=== PATIENT | female | born 1985 | race Caucasian/White ===

== ENCOUNTER 2017-05-04 08:34 | Day surgery (SDC) | payer OTHER ==
[~2017-05-04] VITALS: Ht 165.1 cm; Wt 88.5 kg
[~2017-05-04 08:34] MED LIST: ALBU.083IS IH; ALBU90OI INH; ALPR1; AMOX500 PO; AZIT200SU PO; AZIT250 PO; BENZ100A PO; BUSP10; CEPH500 PO; CIPR500 PO; CLON.5 PO; CYAN500 PO; Cyclobenzaprine5 MG PO; DESV50 PO; DIAZ5 PO; DOXY100 PO; ERGO400 PO; FLUC150A PO; FLUV50 PO; HYDACE5 PO; HYDHOMSY PO; Hair, Skin & N1 EACH PO; IBUP800; IBUP800 PO; LATUDA; LEVSOD50 PO; LITH300C; METR500 PO; MONT10T PO; MULVITMINE; NAPR250; NAPR500 PO; OXYACE5T PO; PARO20; PARO20 PO; PENVK500 PO; PRED20 PO; PROC10 PO; Percocet 5-3251 EACH PO; QUET300; SERT50; SULTRIDS PO; TAMS.4ER PO; TOPI100 PO; VENL37.5 PO; Vitamin C100 M1 PO; ZYRTEC10 M1 PO
== END 2017-05-04 22:52 | disposition home or self-care (01) ==
LOC: ORSCMMR 08:34
PROVIDERS: Internal Medicine Gastroenterology
PROC: 0DB98ZX Excision of Duodenum, Via Natural or Artificial Opening Endoscopic, Diagnostic (ICD-10-PCS; principal; 2017-05-04 10:00)
PROC: 0DBN8ZX Excision of Sigmoid Colon, Via Natural or Artificial Opening Endoscopic, Diagnostic (ICD-10-PCS; principal; 2017-05-04 10:00)
PROC: 0DB68ZX Excision of Stomach, Via Natural or Artificial Opening Endoscopic, Diagnostic (ICD-10-PCS; principal; 2017-05-04 10:00)
PROC: 0DBB8ZX Excision of Ileum, Via Natural or Artificial Opening Endoscopic, Diagnostic (ICD-10-PCS; principal; 2017-05-04 10:00)
PROC: 0DBK8ZX Excision of Ascending Colon, Via Natural or Artificial Opening Endoscopic, Diagnostic (ICD-10-PCS; principal; 2017-05-04 10:00)
PROC: 0DBL8ZX Excision of Transverse Colon, Via Natural or Artificial Opening Endoscopic, Diagnostic (ICD-10-PCS; principal; 2017-05-04 10:00)
DX: K90.0 Celiac disease (principal); K57.30 Diverticulosis of large intestine without perforation or abscess without bleeding; R19.4 Change in bowel habit; R14.0 Abdominal distension (gaseous); R10.84 Generalized abdominal pain; F43.10 Post-traumatic stress disorder, unspecified; Z87.891 Personal history of nicotine dependence
CPT/HCPCS: 88305; 88342; J2250; J7120

== ENCOUNTER → 2018-06-26 | Outpatient (CLI) | payer OTHER ==
[2018-06-26 08:17] LABS: BASOPHILS ABSOLUTE AUTO 0.04 K/mm3 (0.00-0.23); BASOPHILS PERCENT AUTO 1 % (0-2); EOSINOPHILS ABSOLUTE AUTO 0.22 K/mm3 (0.00-0.68); EOSINOPHILS PERCENT AUTO 3 % (0-6); Hematocrit 40.7 % (33.0-51.0); Hemoglobin 13.7 g/dL (11.5-16.0); IMMATURE GRAN ABSOLUTE AUTO 0.02 K/mm3 (0.00-0.10); IMMATURE GRAN PERCENT AUTO 0 % (0-1); LYMPHOCYTES ABSOLUTE AUTO 1.89 K/mm3 (0.84-5.20); LYMPHOCYTES PERCENT AUTO 29 % (21-46); MONOCYTES ABSOLUTE AUTO 0.48 K/mm3 (0.16-1.47); MONOCYTES PERCENT AUTO 7 % (4-13); Mean Corpuscular HGB 29.7 pg (26.0-34.0); Mean Corpuscular HGB Conc 33.7 g/dL (31.5-36.5); Mean Corpuscular Volume 88 fL (80-100); Mean Platelet Volume 10.4 fL (9.1-12.4); NEUTROPHILS ABSOLUTE AUTO 3.81 K/mm3 (1.96-9.15); NEUTROPHILS PERCENT AUTO 59 % (41-73); Platelet Count 286 K/mm3 (150-400); RDW Coefficient Variation 12.8 % (11.7-14.2); RDW Standard Deviation 41.3 fL (35.1-46.3); Red Blood Cell Count 4.61 M/mm3 (3.80-5.20); White Blood Cell Count 6.46 K/mm3 (4.00-11.30)
[2018-06-26 08:35] LABS: Alanine Aminotransfer (ALT/SGP 28 U/L (12-78); Albumin, Blood 3.6 g/dL (3.4-5.0); Albumin/Globulin Ratio 1.1 (0.8-1.8); Alk Phos 62 U/L (40-126); Anion Gap 8 mmol/L (6-16); Aspartate Aminotrans (AST/SGOT 15 U/L (12-37); Bilirubin, Total 0.2 mg/dL (0.1-1.0); Blood Urea Nitrogen 11 mg/dL (8-24); Bun/Creatinine Ratio 18.6 (12.0-20.0); CO2, Blood 27 mmol/L (21-32); Calcium, Blood 8.4 mg/dL (8.5-10.1); Chloride, Blood 105 mmol/L (98-108); Creatinine, Blood 0.59 mg/dL (0.40-1.00); Globulin, Blood 3.3 g/dL (2.2-4.0); Glomerular Filtration Rate >60 (60-); Glucose, Blood 99 mg/dL (70-99); Magnesium, Blood 1.7 mg/dL (1.6-2.4); Potassium, Blood 4.2 mmol/L (3.5-5.5); Sodium, Blood 140 mmol/L (136-145); Thyroid Stimulating Hormone 1.435 uIU/mL (0.360-4.800); Total Protein, Blood 6.9 g/dL (6.4-8.2)
== END | disposition home or self-care (01) ==
LOC: LAB SHORT 08:12 → LAB EV 08:12
PROVIDERS: Physician Assistant
DX: R60.9 Edema, unspecified (principal); R53.83 Other fatigue
CPT/HCPCS: 80053; 83735; 84443; 85025

== ENCOUNTER 2018-07-29 10:32 | Emergency (ER) | payer OTHER ==
[~2018-07-29] VITALS: Ht 165.1 cm; Wt 94.8 kg
[2018-07-29] MEDS ORDERED: METPHE10 PO (10:45)
[2018-07-29] MEDS ORDERED: POTCHL10ER PO (10:46)
[2018-07-29] MEDS ORDERED: FURO20 PO (10:46)
[2018-07-29 11:14] LABS: BASOPHILS ABSOLUTE AUTO 0.04 K/mm3 (0.00-0.23); BASOPHILS PERCENT AUTO 1 % (0-2); EOSINOPHILS ABSOLUTE AUTO 0.19 K/mm3 (0.00-0.68); EOSINOPHILS PERCENT AUTO 2 % (0-6); Hematocrit 42.7 % (33.0-51.0); Hemoglobin 14.2 g/dL (11.5-16.0); IMMATURE GRAN ABSOLUTE AUTO 0.03 K/mm3 (0.00-0.10); IMMATURE GRAN PERCENT AUTO 0 % (0-1); LYMPHOCYTES ABSOLUTE AUTO 2.24 K/mm3 (0.84-5.20); LYMPHOCYTES PERCENT AUTO 26 % (21-46); MONOCYTES ABSOLUTE AUTO 0.69 K/mm3 (0.16-1.47); MONOCYTES PERCENT AUTO 8 % (4-13); Mean Corpuscular HGB 29.3 pg (26.0-34.0); Mean Corpuscular HGB Conc 33.3 g/dL (31.5-36.5); Mean Corpuscular Volume 88 fL (80-100); Mean Platelet Volume 10.5 fL (9.1-12.4); NEUTROPHILS ABSOLUTE AUTO 5.61 K/mm3 (1.96-9.15); NEUTROPHILS PERCENT AUTO 64 % (41-73); Platelet Count 275 K/mm3 (150-400); RDW Coefficient Variation 12.5 % (11.7-14.2); RDW Standard Deviation 40.2 fL (35.1-46.3); Red Blood Cell Count 4.84 M/mm3 (3.80-5.20)
[2018-07-29 11:16] LABS: Source, Urine Clean Catch
[2018-07-29 11:19] LABS: Appearance, Urine Clear (Clear); Bilirubin, Urine Neg (Neg); Blood, Urine Neg (Neg); Color, Urine Yellow (P-Yellow); Glucose Qualitative, Urine Neg (Neg); Ketones, Urine Neg (Neg); Leukocyte Esterase, Urine Neg (Neg); Nitrite, Urine Neg (Neg); Protein, Urine Neg (Neg); Urobilinogen, Urine NORM (Normal)
[2018-07-29 11:26] LABS: Alanine Aminotransfer (ALT/SGP 38 U/L (12-78); Albumin/Globulin Ratio 1.2 (0.8-1.8); Alk Phos 69 U/L (50-136); Anion Gap 5 mmol/L (6-16); Aspartate Aminotrans (AST/SGOT 18 U/L (12-37); Bilirubin, Total 0.3 mg/dL (0.1-1.0); Blood Urea Nitrogen 11 mg/dL (8-24); Bun/Creatinine Ratio 20.6 (12.0-20.0); CO2, Blood 30 mmol/L (21-32); Calcium, Blood 9.1 mg/dL (8.5-10.1); Chloride, Blood 106 mmol/L (98-108); Creatinine, Blood 0.53 mg/dL (0.40-1.00); Globulin, Blood 3.4 g/dL (2.2-4.0); Glomerular Filtration Rate >60 (60-); Glucose, Blood 80 mg/dL (70-99); Sodium, Blood 141 mmol/L (136-145); Total Protein, Blood 7.4 g/dL (6.4-8.2)
== END 2018-07-29 12:57 | disposition home or self-care (01) ==
LOC: ER 10:32
PROVIDERS: Emergency Medicine
DX: R10.32 Left lower quadrant pain (principal); F17.210 Nicotine dependence, cigarettes, uncomplicated; Z88.5 Allergy status to narcotic agent; Z79.899 Other long term (current) drug therapy
CPT/HCPCS: 36415; 74176; 80053; 81003; 83690; 85025; 96374; 96375; 99284-25; J1170; J2405

== ENCOUNTER → 2021-09-01 | Outpatient (CLI) | payer BC ==
[~2021-09-01] MED LIST changes: +FURO20 PO; +METPHE10 PO; +POTCHL10ER PO
== END | disposition home or self-care (01) ==
LOC: LAB 15:56 → LAB SHORT 15:56
DX: R30.0 Dysuria (principal)
CPT/HCPCS: 87086

== ENCOUNTER → 2021-10-29 | Outpatient (CLI) | payer BC ==
[2021-10-29 13:45] LABS: BASOPHILS ABSOLUTE AUTO 0.03 K/mm3 (0.00-0.23); BASOPHILS PERCENT AUTO 0 % (0-2); EOSINOPHILS ABSOLUTE AUTO 0.13 K/mm3 (0.00-0.68); EOSINOPHILS PERCENT AUTO 2 % (0-6); Hematocrit 44.2 % (33.0-51.0); Hemoglobin 14.9 g/dL (11.5-16.0); IMMATURE GRAN ABSOLUTE AUTO 0.01 K/mm3 (0.00-0.10); IMMATURE GRAN PERCENT AUTO 0 % (0-1); LYMPHOCYTES ABSOLUTE AUTO 2.22 K/mm3 (0.84-5.20); LYMPHOCYTES PERCENT AUTO 32 % (21-46); MONOCYTES ABSOLUTE AUTO 0.44 K/mm3 (0.16-1.47); MONOCYTES PERCENT AUTO 6 % (4-13); Mean Corpuscular HGB 30.1 pg (26.0-34.0); Mean Corpuscular HGB Conc 33.7 g/dL (31.5-36.5); Mean Corpuscular Volume 89 fL (80-100); Mean Platelet Volume 10.6 fL (9.1-12.4); NEUTROPHILS ABSOLUTE AUTO 4.14 K/mm3 (1.96-9.15); NEUTROPHILS PERCENT AUTO 59 % (41-73); Platelet Count 288 K/mm3 (150-400); RDW Standard Deviation 42.3 fL (35.1-46.3); Red Blood Cell Count 4.95 M/mm3 (3.80-5.20); White Blood Cell Count 6.97 K/mm3 (4.00-11.30)
[2021-10-29 13:57] LABS: Albumin, Blood 4.2 g/dL (3.4-5.0); Albumin/Globulin Ratio 1.2 (0.8-1.8); Bilirubin, Total 0.2 mg/dL (0.1-1.0); Bun/Creatinine Ratio 12.7 (12.0-20.0); Creatinine, Blood 0.63 mg/dL (0.40-1.00); Globulin, Blood 3.4 g/dL (2.2-4.0); Potassium, Blood 3.9 mmol/L (3.5-5.5); Total Protein, Blood 7.6 g/dL (6.4-8.2)
== END | disposition home or self-care (01) ==
LOC: LAB SHORT 13:41
PROVIDERS: Physician Assistant
DX: R10.31 Right lower quadrant pain (principal)
CPT/HCPCS: 80053; 83690; 85025

== ENCOUNTER → 2022-04-09 | Outpatient (CLI) | payer BC ==
[2022-04-09 16:31] LABS: BASOPHILS ABSOLUTE AUTO 0.04 K/mm3 (0.00-0.23); BASOPHILS PERCENT AUTO 0 % (0-2); EOSINOPHILS PERCENT AUTO 2 % (0-6); Hematocrit 41.9 % (33.0-51.0); Hemoglobin 14.4 g/dL (11.5-16.0); IMMATURE GRAN ABSOLUTE AUTO 0.03 K/mm3 (0.00-0.10); IMMATURE GRAN PERCENT AUTO 0 % (0-1); LYMPHOCYTES ABSOLUTE AUTO 3.53 K/mm3 (0.84-5.20); LYMPHOCYTES PERCENT AUTO 34 % (21-46); MONOCYTES ABSOLUTE AUTO 0.73 K/mm3 (0.16-1.47); MONOCYTES PERCENT AUTO 7 % (4-13); Mean Corpuscular HGB 30.5 pg (26.0-34.0); Mean Corpuscular HGB Conc 34.4 g/dL (31.5-36.5); Mean Corpuscular Volume 89 fL (80-100); Mean Platelet Volume 10.3 fL (9.1-12.4); NEUTROPHILS ABSOLUTE AUTO 6.01 K/mm3 (1.96-9.15); NEUTROPHILS PERCENT AUTO 57 % (41-73); Platelet Count 291 K/mm3 (150-400); RDW Coefficient Variation 12.5 % (11.7-14.2); RDW Standard Deviation 40.8 fL (35.1-46.3); Red Blood Cell Count 4.72 M/mm3 (3.80-5.20); White Blood Cell Count 10.54 K/mm3 (4.00-11.30)
[2022-04-09 16:47] LABS: Albumin, Blood 4.1 g/dL (3.4-5.0); Albumin/Globulin Ratio 1.2 (0.8-1.8); Bilirubin, Total 0.2 mg/dL (0.1-1.0); Bun/Creatinine Ratio 19.6 (12.0-20.0); Calcium, Blood 8.9 mg/dL (8.5-10.1); Creatinine, Blood 0.56 mg/dL (0.40-1.00); Globulin, Blood 3.5 g/dL (2.2-4.0); Potassium, Blood 3.4 mmol/L (3.5-5.5); Total Protein, Blood 7.6 g/dL (6.4-8.2)
== END | disposition home or self-care (01) ==
LOC: LAB SHORT 16:27
PROVIDERS: Chiropractor
DX: R10.31 Right lower quadrant pain (principal)
CPT/HCPCS: 80053; 85025

== ENCOUNTER 2022-07-23 11:32 | Observation (INO) | payer BC ==
[~2022-07-23] VITALS: Ht 162.6 cm; Wt 102.1 kg
[2022-07-23 12:06] LABS: BASOPHILS ABSOLUTE AUTO 0.03 K/mm3 (0.00-0.23); BASOPHILS PERCENT AUTO 0 % (0-2); EOSINOPHILS ABSOLUTE AUTO 0.09 K/mm3 (0.00-0.68); EOSINOPHILS PERCENT AUTO 1 % (0-6); Hematocrit 42.5 % (33.0-51.0); Hemoglobin 14.4 g/dL (11.5-16.0); IMMATURE GRAN ABSOLUTE AUTO 0.03 K/mm3 (0.00-0.10); IMMATURE GRAN PERCENT AUTO 0 % (0-1); LYMPHOCYTES PERCENT AUTO 20 % (21-46); MONOCYTES PERCENT AUTO 5 % (4-13); Mean Corpuscular HGB 29.7 pg (26.0-34.0); Mean Corpuscular HGB Conc 33.9 g/dL (31.5-36.5); Mean Corpuscular Volume 88 fL (80-100); Mean Platelet Volume 10.3 fL (9.1-12.4); NEUTROPHILS ABSOLUTE AUTO 8.26 K/mm3 (1.96-9.15); NEUTROPHILS PERCENT AUTO 74 % (41-73); Platelet Count 328 K/mm3 (150-400); RDW Coefficient Variation 12.5 % (11.7-14.2); RDW Standard Deviation 40.2 fL (35.1-46.3); Red Blood Cell Count 4.85 M/mm3 (3.80-5.20); White Blood Cell Count 11.11 K/mm3 (4.00-11.30)
[2022-07-23 12:23] LABS: Ethanol (Alcohol), Blood, Med <3 mg/dL; Salicylate 3.7 mg/dL (2.8-20.0)
[2022-07-23 12:29] LABS: Alanine Aminotransfer (ALT/SGP 23 U/L (12-78); Albumin, Blood 3.9 g/dL (3.4-5.0); Albumin/Globulin Ratio 1.1 (0.8-1.8); Alk Phos 67 U/L (50-136); Anion Gap 7 mmol/L (6-16); Aspartate Aminotrans (AST/SGOT 10 U/L (12-37); Bilirubin, Total 0.2 mg/dL (0.1-1.0); Blood Urea Nitrogen 11 mg/dL (8-24); Bun/Creatinine Ratio 16.6 (12.0-20.0); CO2, Blood 24 mmol/L (21-32); Chloride, Blood 110 mmol/L (98-108); Creatinine, Blood 0.66 mg/dL (0.40-1.00); Globulin, Blood 3.4 g/dL (2.2-4.0); Glomerular Filtration Rate 116 (60-); Glucose, Blood 112 mg/dL (70-99); Potassium, Blood 3.7 mmol/L (3.5-5.5); Sodium, Blood 141 mmol/L (136-145); Total Protein, Blood 7.3 g/dL (6.4-8.2)
[2022-07-23 12:44] LABS: Acetaminophen, Random <2.0 ug/mL (10.0-30.0)
[2022-07-23] MEDS ORDERED: LORA.5 (12:52)
[2022-07-23] MEDS ORDERED: ESCI10 (12:55)
[2022-07-23 13:00] LABS: Source, Urine Clean Catch
[2022-07-23 13:03] LABS: Appearance, Urine Clear (Clear); Bilirubin, Urine Neg (Neg); Blood, Urine 1+ (Neg); Glucose Qualitative, Urine Neg (Neg); Ketones, Urine Neg (Neg); Leukocyte Esterase, Urine Neg (Neg); Nitrite, Urine Neg (Neg); Protein, Urine Neg (Neg); Specific Gravity, Urine 1.015 (1.003-1.022); Urobilinogen, Urine NORM (Normal)
[2022-07-23 13:17] LABS: U Amphetamine Screen Not Detected; U Barbituate Screen Not Detected; U Benzodiazapine Screen Not Detected; U Cannabinoids Screen DETECTED; U Cocaine Screen Not Detected; U Methadone Screen Not Detected; U Methamphetamine Screen Not Detected; U Opiates Screen Not Detected; U Phencyclidine Screen Not Detected
[2022-07-23 13:18] LABS: U Buprenorphine Screen Not Detected; U Oxycodone Screen Not Detected; U Propoxyphene Screen Not Detected
[2022-07-23 13:30] LABS: Color, Urine Pale Yellow (P-Yellow)
[2022-07-23 13:31] LABS: White Blood Cells, Urine Not Seen /hpf (0-5)
[2022-07-23 13:32] LABS: Bacteria Rare /hpf; Squamous Epithelial Cells Mod /hpf (Few)
[2022-07-23 16:02] VITALS: BP 136/84
== END 2022-07-23 16:05 | disposition home or self-care (01) ==
LOC: ER 11:32 → EOR 11:33
PROVIDERS: Physician Assistant; ADMIT Student in an Organized Health Care Education/Training Program
DX: F33.9 Major depressive disorder, recurrent, unspecified (principal); F43.10 Post-traumatic stress disorder, unspecified; R55 Syncope and collapse; Z88.5 Allergy status to narcotic agent; Z79.899 Other long term (current) drug therapy; Z85.41 Personal history of malignant neoplasm of cervix uteri
CPT/HCPCS: 80053; 81001; 81025; 83735; 83880; 84484; 85025; 93005; 93010; 96361; 96374; 96375; 99285-25; A9270; G0378; G0480; J1885; J2405; J7030; Q3014

== ENCOUNTER → 2022-08-02 | Outpatient (CLI) | payer BC ==
[~2022-08-02] MED LIST changes: +ESCI10; +LORA.5
[2022-08-02 15:53] LABS: Adenovirus F 40/41 Not Detected (NOT DETECT); Astrovirus Not Detected (NOT DETECT); Campylobacter Sp Not Detected (NOT DETECT); Cryptosporidium Not Detected (NOT DETECT); Cyclospora Cayetanensis Not Detected (NOT DETECT); E. Coli O157 Not Detected (NOT DETECT); Entamoeba Histolytica Not Detected (NOT DETECT); Enteroaggregative E. coli-EAEC Not Detected (NOT DETECT); Enteropathogenic E. coli-EPEC Not Detected (NOT DETECT); Enterotoxigenic E. coli-ETEC Not Detected (NOT DETECT); Giardia Lamblia Not Detected (NOT DETECT); Norovirus GI/GII Not Detected (NOT DETECT); Plesiomonas Shigelloides Not Detected (NOT DETECT); Rotavirus A Not Detected (NOT DETECT); Salmonella Sp Not Detected (NOT DETECT); Sapovirus Not Detected (NOT DETECT); Shiga Toxin-prod E. coli-STEC Not Detected (NOT DETECT); Shigella/Enteroin E. coli-EIEC Not Detected (NOT DETECT); Vibrio Cholerae Not Detected (NOT DETECT); Vibrio Sp Not Detected (NOT DETECT); Yersinia Enterocolitica Not Detected (NOT DETECT)
== END ==
LOC: LAB SHORT 10:30 → LAB 10:30
PROVIDERS: Hospitalist
DX: R19.7 Diarrhea, unspecified (principal)
CPT/HCPCS: 87507

== ENCOUNTER 2024-09-06 02:59 | Day surgery (SDC) | payer BC ==
[2024-09-06] MEDS ORDERED: NS 1,000 ML IV SCH (06:45)
[2024-09-06 15:51] VITALS: BP 123/74
[2024-09-06] MEDS ORDERED: CLON1 PO (16:26)
[2024-09-06] MEDS ORDERED: Gastrocrom20 MG/1 ML PO (16:27)
[2024-09-06] MEDS ORDERED: ESCI20 PO (16:28)
[2024-09-06] MEDS ORDERED: FAMO10 PO (16:29)
[2024-09-06] MEDS ORDERED: FLUDROCORTISON0.1 M1 PO (16:30)
[2024-09-06] MEDS ORDERED: Fluocinonide15 GM TOP (16:31)
[2024-09-06] MEDS ORDERED: HYDR1TAB94 PO (16:32)
[2024-09-06] MEDS ORDERED: HYDHCL25 PO (16:33)
[2024-09-06] MEDS ORDERED: METAMUCIL174 GM PO (16:34)
[2024-09-06] MEDS ORDERED: LAMO100 PO (16:34)
[2024-09-06] MEDS ORDERED: Naltrexone HCl50 MG PO (16:35)
[2024-09-06] MEDS ORDERED: Nicoderm Cq1 EAC1 TOP (16:36)
[2024-09-06] MEDS ORDERED: ONDA4ODT SL (16:36)
[2024-09-06] MEDS ORDERED: TIZA4 PO (16:37)
[2024-09-06] MEDS ORDERED: TOPI25 PO (16:37)
[2024-09-06] MEDS ORDERED: SODCHL1 PO (16:37)
== END 2024-09-06 17:05 | disposition home or self-care (01) ==
LOC: ATC 02:59
DX: G90.A Postural orthostatic tachycardia syndrome [POTS] (principal); K21.9 Gastro-esophageal reflux disease without esophagitis; Z88.5 Allergy status to narcotic agent; Z88.8 Allergy status to other drugs, medicaments and biological substances; Z91.011 Allergy to milk products; Z91.018 Allergy to other foods; Z79.899 Other long term (current) drug therapy
CPT/HCPCS: 96360; J7030

== ENCOUNTER 2024-09-13 04:48 | Day surgery (SDC) | payer BC ==
[~2024-09-13 04:48] MED LIST changes: +CLON1 PO; +ESCI20 PO; +FAMO10 PO; +FLUDROCORTISON0.1 M1 PO; +Fluocinonide15 GM TOP; +Gastrocrom20 MG/1 ML PO; +HYDHCL25 PO; +HYDR1TAB94 PO; +LAMO100 PO; +METAMUCIL174 GM PO; +Naltrexone HCl50 MG PO; +Nicoderm Cq1 EAC1 TOP; +ONDA4ODT SL; +SODCHL1 PO; +TIZA4 PO; +TOPI25 PO
[2024-09-13] MEDS ORDERED: NS 1,000 ML IV SCH (06:00)
[2024-09-13 16:03] VITALS: BP 106/83
== END 2024-09-13 17:04 | disposition home or self-care (01) ==
LOC: ATC 04:48
DX: G90.A Postural orthostatic tachycardia syndrome [POTS] (principal); F17.210 Nicotine dependence, cigarettes, uncomplicated; Z88.5 Allergy status to narcotic agent; Z88.8 Allergy status to other drugs, medicaments and biological substances; Z91.011 Allergy to milk products; Z91.018 Allergy to other foods; Z79.899 Other long term (current) drug therapy
CPT/HCPCS: 96360; J7030

== ENCOUNTER 2024-09-21 01:13 | Day surgery (SDC) | payer BC ==
[2024-09-21] MEDS ORDERED: NS 1,000 ML IV SCH (06:50)
[2024-09-21 14:10] VITALS: BP 113/65
== END 2024-09-21 15:17 | disposition home or self-care (01) ==
LOC: ATC 01:13
DX: G90.A Postural orthostatic tachycardia syndrome [POTS] (principal); G89.4 Chronic pain syndrome; F17.210 Nicotine dependence, cigarettes, uncomplicated; Z79.899 Other long term (current) drug therapy; Z88.5 Allergy status to narcotic agent; Z88.4 Allergy status to anesthetic agent; Z88.8 Allergy status to other drugs, medicaments and biological substances
CPT/HCPCS: J7030

== ENCOUNTER 2024-10-09 00:47 | Day surgery (SDC) | payer BC ==
[2024-10-09] MEDS ORDERED: NS 1,000 ML IV PRN (07:05)
== END 2024-10-09 15:51 | disposition home or self-care (01) ==
LOC: ATC 00:47
DX: G90.A Postural orthostatic tachycardia syndrome [POTS] (principal); K21.9 Gastro-esophageal reflux disease without esophagitis; G89.4 Chronic pain syndrome; F17.210 Nicotine dependence, cigarettes, uncomplicated; Z79.899 Other long term (current) drug therapy; Z91.011 Allergy to milk products; Z88.5 Allergy status to narcotic agent; Z88.4 Allergy status to anesthetic agent; Z88.8 Allergy status to other drugs, medicaments and biological substances; Z91.018 Allergy to other foods
CPT/HCPCS: 96360; J7030

== ENCOUNTER 2024-10-18 00:39 | Day surgery (SDC) | payer BC ==
[2024-10-18] MEDS ORDERED: NS 1,000 ML IV SCH (07:10)
[2024-10-18 16:03] VITALS: BP 135/84
== END 2024-10-18 17:16 | disposition home or self-care (01) ==
LOC: ATC 00:39
DX: G90.A Postural orthostatic tachycardia syndrome [POTS] (principal); G89.4 Chronic pain syndrome; K21.9 Gastro-esophageal reflux disease without esophagitis; Q79.60 Ehlers-Danlos syndrome, unspecified; F17.210 Nicotine dependence, cigarettes, uncomplicated; Z79.899 Other long term (current) drug therapy; Z88.5 Allergy status to narcotic agent; Z88.8 Allergy status to other drugs, medicaments and biological substances; Z91.011 Allergy to milk products; Z91.018 Allergy to other foods; Z91.02 Food additives allergy status
CPT/HCPCS: 96360; J7030

== ENCOUNTER 2024-10-22 01:40 | Day surgery (SDC) | payer BC ==
[2024-10-22] MEDS ORDERED: NS 1,000 ML IV SCH (07:15)
[2024-10-22 15:25] VITALS: BP 142/83
== END 2024-10-22 16:43 | disposition home or self-care (01) ==
LOC: ATC 01:40
DX: G90.A Postural orthostatic tachycardia syndrome [POTS] (principal); K21.9 Gastro-esophageal reflux disease without esophagitis; G89.4 Chronic pain syndrome; F17.210 Nicotine dependence, cigarettes, uncomplicated; Z79.899 Other long term (current) drug therapy; Z88.5 Allergy status to narcotic agent; Z88.8 Allergy status to other drugs, medicaments and biological substances; Z91.018 Allergy to other foods; Z90.710 Acquired absence of both cervix and uterus
CPT/HCPCS: 96360; J7030

== ENCOUNTER 2024-10-25 00:04 | Day surgery (SDC) | payer BC ==
[2024-10-25] MEDS ORDERED: NS 1,000 ML IV SCH (06:55)
[2024-10-25 16:03] VITALS: BP 134/80
== END 2024-10-25 17:05 | disposition home or self-care (01) ==
LOC: ATC 00:04
DX: G90.A Postural orthostatic tachycardia syndrome [POTS] (principal); G89.4 Chronic pain syndrome; F17.210 Nicotine dependence, cigarettes, uncomplicated; Z79.899 Other long term (current) drug therapy; Z88.5 Allergy status to narcotic agent; Z88.8 Allergy status to other drugs, medicaments and biological substances; Z88.4 Allergy status to anesthetic agent; Z91.018 Allergy to other foods; Z91.011 Allergy to milk products
CPT/HCPCS: 96360; J7030

== ENCOUNTER 2024-11-06 03:01 | Day surgery (SDC) | payer SELFPAY ==
[2024-11-06] MEDS ORDERED: NS 1,000 ML IV SCH (07:00)
[2024-11-06 14:15] VITALS: BP 119/75
== END 2024-11-06 15:25 | disposition home or self-care (01) ==
LOC: ATC 03:01
DX: G90.A Postural orthostatic tachycardia syndrome [POTS] (principal); K21.9 Gastro-esophageal reflux disease without esophagitis; G89.4 Chronic pain syndrome; F17.210 Nicotine dependence, cigarettes, uncomplicated; Z79.899 Other long term (current) drug therapy; Z88.5 Allergy status to narcotic agent; Z88.4 Allergy status to anesthetic agent; Z88.8 Allergy status to other drugs, medicaments and biological substances; Z91.011 Allergy to milk products
CPT/HCPCS: 96360; J7030

== ENCOUNTER 2024-11-09 00:15 | Day surgery (SDC) | payer BC ==
[2024-11-09] MEDS ORDERED: NS 1,000 ML IV SCH (07:00)
[2024-11-09 14:44] VITALS: BP 114/77
== END 2024-11-09 15:54 | disposition home or self-care (01) ==
LOC: ATC 00:15
DX: G90.A Postural orthostatic tachycardia syndrome [POTS] (principal); Z88.5 Allergy status to narcotic agent; Z88.8 Allergy status to other drugs, medicaments and biological substances; Z91.011 Allergy to milk products; Z91.018 Allergy to other foods; Z79.899 Other long term (current) drug therapy; K21.9 Gastro-esophageal reflux disease without esophagitis; F17.200 Nicotine dependence, unspecified, uncomplicated
CPT/HCPCS: 96360; J7030

== ENCOUNTER 2024-11-13 07:37 | Day surgery (SDC) | payer BC ==
[2024-11-13] MEDS ORDERED: NS 1,000 ML IV SCH ×2 (07:45→15:00)
[2024-11-13 15:14] VITALS: BP 126/73
== END 2024-11-13 16:15 | disposition home or self-care (01) ==
LOC: ATC 07:37
DX: G90.A Postural orthostatic tachycardia syndrome [POTS] (principal); M75.42 Impingement syndrome of left shoulder; K21.9 Gastro-esophageal reflux disease without esophagitis; G89.4 Chronic pain syndrome; F17.210 Nicotine dependence, cigarettes, uncomplicated; Z79.899 Other long term (current) drug therapy; Z88.5 Allergy status to narcotic agent; Z88.4 Allergy status to anesthetic agent; Z88.8 Allergy status to other drugs, medicaments and biological substances; Z91.018 Allergy to other foods; Z91.011 Allergy to milk products
CPT/HCPCS: 96360; J7030

== ENCOUNTER 2024-11-15 01:00 | Day surgery (SDC) | payer BC ==
[2024-11-15] MEDS ORDERED: NS 1,000 ML IV SCH (07:00)
[2024-11-15 16:01] VITALS: BP 107/71
== END 2024-11-15 17:01 | disposition home or self-care (01) ==
LOC: ATC 01:00
DX: G90.A Postural orthostatic tachycardia syndrome [POTS] (principal); K21.9 Gastro-esophageal reflux disease without esophagitis; F17.200 Nicotine dependence, unspecified, uncomplicated; Z88.5 Allergy status to narcotic agent; Z88.8 Allergy status to other drugs, medicaments and biological substances; Z91.018 Allergy to other foods; Z79.899 Other long term (current) drug therapy
CPT/HCPCS: 96360; J7030

== ENCOUNTER 2024-11-20 01:15 | Day surgery (SDC) | payer BC ==
[2024-11-20] MEDS ORDERED: NS 1,000 ML IV SCH (07:00)
[2024-11-20 14:00] VITALS: BP 129/79
== END 2024-11-20 15:10 | disposition home or self-care (01) ==
LOC: ATC 01:15
DX: G90.A Postural orthostatic tachycardia syndrome [POTS] (principal); Q79.60 Ehlers-Danlos syndrome, unspecified; K21.9 Gastro-esophageal reflux disease without esophagitis; G89.4 Chronic pain syndrome; F17.210 Nicotine dependence, cigarettes, uncomplicated; Z79.899 Other long term (current) drug therapy; Z88.5 Allergy status to narcotic agent; Z88.4 Allergy status to anesthetic agent; Z88.8 Allergy status to other drugs, medicaments and biological substances; Z91.018 Allergy to other foods; Z91.0110 Allergy to milk products, unspecified
CPT/HCPCS: J7030

== ENCOUNTER 2024-11-23 01:28 | Day surgery (SDC) | payer BC ==
[2024-11-23] MEDS ORDERED: NS 1,000 ML IV SCH (07:00)
[2024-11-23 15:06] VITALS: BP 110/70
== END 2024-11-23 16:09 | disposition home or self-care (01) ==
LOC: ATC 01:28
DX: G90.A Postural orthostatic tachycardia syndrome [POTS] (principal); G89.4 Chronic pain syndrome; K21.9 Gastro-esophageal reflux disease without esophagitis; F17.210 Nicotine dependence, cigarettes, uncomplicated; Z88.5 Allergy status to narcotic agent; Z88.4 Allergy status to anesthetic agent; Z88.8 Allergy status to other drugs, medicaments and biological substances; Z91.0110 Allergy to milk products, unspecified; Z91.018 Allergy to other foods
CPT/HCPCS: 96360; J7030

== ENCOUNTER 2024-11-27 01:32 | Day surgery (SDC) | payer BC ==
[2024-11-27] MEDS ORDERED: NS 1,000 ML IV SCH (07:00)
[2024-11-27 10:02] VITALS: BP 123/70
== END 2024-11-27 11:13 | disposition home or self-care (01) ==
LOC: ATC 01:32
DX: G90.A Postural orthostatic tachycardia syndrome [POTS] (principal); F17.210 Nicotine dependence, cigarettes, uncomplicated; K21.9 Gastro-esophageal reflux disease without esophagitis; Z91.0110 Allergy to milk products, unspecified; Z91.018 Allergy to other foods; Z88.5 Allergy status to narcotic agent; Z88.8 Allergy status to other drugs, medicaments and biological substances; Z79.899 Other long term (current) drug therapy
CPT/HCPCS: 96360; J7030

== ENCOUNTER 2024-11-30 08:19 | Day surgery (SDC) | payer BC ==
[~2024-11-30 08:19] MED LIST changes: +NS 1,000 ML IV SCH
[2024-11-30 15:10] VITALS: BP 128/90
== END 2024-11-30 16:27 | disposition home or self-care (01) ==
LOC: ATC 08:19
DX: G90.A Postural orthostatic tachycardia syndrome [POTS] (principal); K21.9 Gastro-esophageal reflux disease without esophagitis; G89.4 Chronic pain syndrome; F17.210 Nicotine dependence, cigarettes, uncomplicated; Z88.5 Allergy status to narcotic agent; Z88.4 Allergy status to anesthetic agent; Z88.8 Allergy status to other drugs, medicaments and biological substances; Z91.018 Allergy to other foods; Z79.899 Other long term (current) drug therapy
CPT/HCPCS: 96360; J7030

== ENCOUNTER 2024-12-03 07:25 | Day surgery (SDC) | payer BC ==
[~2024-12-03 07:25] MED LIST changes: -NS 1,000 ML IV SCH
[2024-12-03] MEDS ORDERED: NS 1,000 ML IV SCH (11:05)
[2024-12-03 16:02] VITALS: BP 110/72
== END 2024-12-03 17:00 | disposition home or self-care (01) ==
LOC: ATC 07:25
DX: G90.A Postural orthostatic tachycardia syndrome [POTS] (principal); F17.200 Nicotine dependence, unspecified, uncomplicated; Z88.5 Allergy status to narcotic agent; Z88.8 Allergy status to other drugs, medicaments and biological substances; Z91.0110 Allergy to milk products, unspecified; Z91.018 Allergy to other foods; Z79.899 Other long term (current) drug therapy
CPT/HCPCS: 96360; J7030

== ENCOUNTER 2024-12-06 00:10 | Day surgery (SDC) | payer BC ==
[2024-12-06] MEDS ORDERED: NS 1,000 ML IV SCH (07:00)
[2024-12-06 15:44] VITALS: BP 115/69
== END 2024-12-06 16:50 | disposition home or self-care (01) ==
LOC: ATC 00:10
DX: G90.A Postural orthostatic tachycardia syndrome [POTS] (principal); G89.4 Chronic pain syndrome; K21.9 Gastro-esophageal reflux disease without esophagitis; M06.4 Inflammatory polyarthropathy; Q79.60 Ehlers-Danlos syndrome, unspecified; F17.210 Nicotine dependence, cigarettes, uncomplicated; Z79.899 Other long term (current) drug therapy; Z88.5 Allergy status to narcotic agent; Z88.8 Allergy status to other drugs, medicaments and biological substances; Z91.0110 Allergy to milk products, unspecified; Z91.018 Allergy to other foods
CPT/HCPCS: 96360; J7030

== ENCOUNTER 2024-12-10 00:56 | Day surgery (SDC) | payer BC ==
[2024-12-10] MEDS ORDERED: NS 1,000 ML IV SCH (06:00)
[2024-12-10 15:49] VITALS: BP 127/75
== END 2024-12-10 17:00 | disposition home or self-care (01) ==
LOC: ATC 00:56
DX: G90.A Postural orthostatic tachycardia syndrome [POTS] (principal); G89.4 Chronic pain syndrome; K21.9 Gastro-esophageal reflux disease without esophagitis; F41.0 Panic disorder [episodic paroxysmal anxiety]; F17.210 Nicotine dependence, cigarettes, uncomplicated; Z79.899 Other long term (current) drug therapy; Z88.5 Allergy status to narcotic agent; Z88.4 Allergy status to anesthetic agent; Z88.8 Allergy status to other drugs, medicaments and biological substances; Z91.0110 Allergy to milk products, unspecified; Z91.018 Allergy to other foods; Z90.710 Acquired absence of both cervix and uterus
CPT/HCPCS: 96360; J7030

== ENCOUNTER 2024-12-13 02:56 | Day surgery (SDC) | payer BC ==
[2024-12-13] MEDS ORDERED: NS 1,000 ML IV SCH (06:00)
[2024-12-13 16:27] VITALS: BP 138/91
== END 2024-12-13 17:42 | disposition home or self-care (01) ==
LOC: ATC 02:56
DX: G90.A Postural orthostatic tachycardia syndrome [POTS] (principal); G89.4 Chronic pain syndrome; K21.9 Gastro-esophageal reflux disease without esophagitis; M06.4 Inflammatory polyarthropathy; Q79.60 Ehlers-Danlos syndrome, unspecified; F17.210 Nicotine dependence, cigarettes, uncomplicated; Z79.899 Other long term (current) drug therapy; Z88.5 Allergy status to narcotic agent; Z88.8 Allergy status to other drugs, medicaments and biological substances; Z91.0110 Allergy to milk products, unspecified; Z91.018 Allergy to other foods
CPT/HCPCS: 96360; 99211; J7030

== ENCOUNTER 2024-12-17 01:22 | Day surgery (SDC) | payer BC ==
[2024-12-17] MEDS ORDERED: NS 1,000 ML IV SCH (07:00)
[2024-12-17 15:47] VITALS: BP 128/72
== END 2024-12-17 17:03 | disposition home or self-care (01) ==
LOC: ATC 01:22
DX: G90.A Postural orthostatic tachycardia syndrome [POTS] (principal); G47.00 Insomnia, unspecified; G89.4 Chronic pain syndrome; G44.229 Chronic tension-type headache, not intractable; F17.210 Nicotine dependence, cigarettes, uncomplicated; K21.9 Gastro-esophageal reflux disease without esophagitis; M75.42 Impingement syndrome of left shoulder; M06.4 Inflammatory polyarthropathy; Q79.60 Ehlers-Danlos syndrome, unspecified; Z79.51 Long term (current) use of inhaled steroids; Z79.52 Long term (current) use of systemic steroids; Z79.899 Other long term (current) drug therapy; Z88.4 Allergy status to anesthetic agent; Z88.6 Allergy status to analgesic agent; Z88.8 Allergy status to other drugs, medicaments and biological substances; Z91.018 Allergy to other foods; Z91.0110 Allergy to milk products, unspecified
CPT/HCPCS: 96360; J7030

== ENCOUNTER 2024-12-20 02:15 | Day surgery (SDC) | payer BC ==
[2024-12-20] MEDS ORDERED: NS 1,000 ML IV SCH (06:00)
[2024-12-20 15:30] VITALS: BP 131/87
== END 2024-12-20 16:40 | disposition home or self-care (01) ==
LOC: ATC 02:15
DX: G90.A Postural orthostatic tachycardia syndrome [POTS] (principal); K21.9 Gastro-esophageal reflux disease without esophagitis; F41.0 Panic disorder [episodic paroxysmal anxiety]; M75.42 Impingement syndrome of left shoulder; G89.4 Chronic pain syndrome; F17.210 Nicotine dependence, cigarettes, uncomplicated; Z79.899 Other long term (current) drug therapy; Z88.5 Allergy status to narcotic agent; Z88.4 Allergy status to anesthetic agent; Z88.8 Allergy status to other drugs, medicaments and biological substances; Z91.0110 Allergy to milk products, unspecified; Z91.018 Allergy to other foods; Z90.710 Acquired absence of both cervix and uterus
CPT/HCPCS: 96360; J7030

== ENCOUNTER 2024-12-26 00:18 | Day surgery (SDC) | payer BC ==
[2024-12-26] MEDS ORDERED: NS 1,000 ML IV SCH (07:00)
[2024-12-26 07:54] VITALS: BP 124/68
== END 2024-12-26 09:08 | disposition home or self-care (01) ==
LOC: ATC 00:18
DX: G90.A Postural orthostatic tachycardia syndrome [POTS] (principal); K21.9 Gastro-esophageal reflux disease without esophagitis; G89.4 Chronic pain syndrome; F17.210 Nicotine dependence, cigarettes, uncomplicated; Z88.5 Allergy status to narcotic agent; Z88.8 Allergy status to other drugs, medicaments and biological substances; Z91.018 Allergy to other foods; Z91.0110 Allergy to milk products, unspecified; Z79.899 Other long term (current) drug therapy
CPT/HCPCS: 96360; J7030

== ENCOUNTER 2024-12-31 00:42 | Day surgery (SDC) | payer BC ==
[2024-12-31] MEDS ORDERED: NS 1,000 ML IV SCH (06:00)
[2024-12-31 16:07] VITALS: BP 126/88
== END 2024-12-31 17:15 | disposition home or self-care (01) ==
LOC: ATC 00:42
DX: G90.A Postural orthostatic tachycardia syndrome [POTS] (principal); K21.9 Gastro-esophageal reflux disease without esophagitis; G89.4 Chronic pain syndrome; F17.210 Nicotine dependence, cigarettes, uncomplicated; Z79.899 Other long term (current) drug therapy; Z88.5 Allergy status to narcotic agent; Z88.4 Allergy status to anesthetic agent; Z88.8 Allergy status to other drugs, medicaments and biological substances; Z91.018 Allergy to other foods; Z90.710 Acquired absence of both cervix and uterus
CPT/HCPCS: 96360; J7030

== ENCOUNTER 2025-01-03 00:52 | Day surgery (SDC) | payer BC ==
[2025-01-03] MEDS ORDERED: NS 1,000 ML IV SCH (07:00)
[2025-01-03 16:15] VITALS: BP 121/83
== END 2025-01-03 17:24 | disposition home or self-care (01) ==
LOC: ATC 00:52
DX: G90.A Postural orthostatic tachycardia syndrome [POTS] (principal); K21.9 Gastro-esophageal reflux disease without esophagitis; F17.210 Nicotine dependence, cigarettes, uncomplicated; Z88.5 Allergy status to narcotic agent; Z88.8 Allergy status to other drugs, medicaments and biological substances; Z91.0110 Allergy to milk products, unspecified; Z91.018 Allergy to other foods; Z79.899 Other long term (current) drug therapy
CPT/HCPCS: 96360; J7030

== ENCOUNTER 2025-01-07 00:25 | Day surgery (SDC) | payer BC ==
[2025-01-07] MEDS ORDERED: NS 1,000 ML IV SCH (06:00)
[2025-01-07 15:30] VITALS: BP 129/79
== END 2025-01-07 16:32 | disposition home or self-care (01) ==
LOC: ATC 00:25
DX: G90.A Postural orthostatic tachycardia syndrome [POTS] (principal); K21.9 Gastro-esophageal reflux disease without esophagitis; G89.4 Chronic pain syndrome; F17.210 Nicotine dependence, cigarettes, uncomplicated; Z88.5 Allergy status to narcotic agent; Z88.4 Allergy status to anesthetic agent; Z88.8 Allergy status to other drugs, medicaments and biological substances; Z91.0110 Allergy to milk products, unspecified; Z91.018 Allergy to other foods; Z90.710 Acquired absence of both cervix and uterus
CPT/HCPCS: 96360; J7030

== ENCOUNTER 2025-01-14 02:41 | Day surgery (SDC) | payer BC ==
[2025-01-14] MEDS ORDERED: NS 1,000 ML IV SCH (07:35)
[2025-01-14 16:09] VITALS: BP 129/77
== END 2025-01-14 17:13 | disposition home or self-care (01) ==
LOC: ATC 02:41
DX: G90.A Postural orthostatic tachycardia syndrome [POTS] (principal)
CPT/HCPCS: 96360; J7030

== ENCOUNTER 2025-01-17 02:26 | Day surgery (SDC) | payer BC ==
[2025-01-17] MEDS ORDERED: NS 1,000 ML IV SCH (06:00)
[2025-01-17 16:04] VITALS: BP 114/74
[2025-01-17] MEDS ORDERED: PREG25 PO (18:12)
== END 2025-01-17 17:17 | disposition home or self-care (01) ==
LOC: ATC 02:26
DX: G90.A Postural orthostatic tachycardia syndrome [POTS] (principal); G89.4 Chronic pain syndrome; K21.9 Gastro-esophageal reflux disease without esophagitis; F17.210 Nicotine dependence, cigarettes, uncomplicated; Z79.899 Other long term (current) drug therapy; Z88.5 Allergy status to narcotic agent; Z88.4 Allergy status to anesthetic agent; Z88.8 Allergy status to other drugs, medicaments and biological substances; Z91.018 Allergy to other foods; Z90.710 Acquired absence of both cervix and uterus
CPT/HCPCS: 96360; 99211; J7030

== ENCOUNTER 2025-01-21 04:21 | Day surgery (SDC) | payer BC ==
[~2025-01-21 04:21] MED LIST changes: +PREG25 PO
[2025-01-21] MEDS ORDERED: NS 1,000 ML IV SCH (07:00)
[2025-01-21 16:02] VITALS: BP 123/76
== END 2025-01-21 17:14 | disposition home or self-care (01) ==
LOC: ATC 04:21
DX: G90.A Postural orthostatic tachycardia syndrome [POTS] (principal); K21.9 Gastro-esophageal reflux disease without esophagitis; F17.210 Nicotine dependence, cigarettes, uncomplicated; Z88.5 Allergy status to narcotic agent; Z88.8 Allergy status to other drugs, medicaments and biological substances; Z91.018 Allergy to other foods; Z91.0110 Allergy to milk products, unspecified; Z79.899 Other long term (current) drug therapy
CPT/HCPCS: 96360; 99211; J7030

== ENCOUNTER 2025-01-23 00:43 | Day surgery (SDC) | payer BC ==
[2025-01-23] MEDS ORDERED: NS 1,000 ML IV SCH (06:00)
[2025-01-23 16:28] VITALS: BP 124/70
== END 2025-01-23 17:34 | disposition home or self-care (01) ==
LOC: ATC 00:43
DX: G90.A Postural orthostatic tachycardia syndrome [POTS] (principal); K21.9 Gastro-esophageal reflux disease without esophagitis; F17.210 Nicotine dependence, cigarettes, uncomplicated; Z88.5 Allergy status to narcotic agent; Z88.8 Allergy status to other drugs, medicaments and biological substances; Z91.018 Allergy to other foods; Z91.0110 Allergy to milk products, unspecified; Z79.899 Other long term (current) drug therapy
CPT/HCPCS: 96360; J7030

== ENCOUNTER 2025-01-28 00:46 | Day surgery (SDC) | payer BC ==
[2025-01-28] MEDS ORDERED: NS 1,000 ML IV SCH (07:00)
[2025-01-28 16:43] VITALS: BP 122/73
== END 2025-01-28 17:58 | disposition home or self-care (01) ==
LOC: ATC 00:46
DX: G90.A Postural orthostatic tachycardia syndrome [POTS] (principal); K21.9 Gastro-esophageal reflux disease without esophagitis; G89.4 Chronic pain syndrome; F17.210 Nicotine dependence, cigarettes, uncomplicated; Z79.899 Other long term (current) drug therapy; Z88.5 Allergy status to narcotic agent; Z88.4 Allergy status to anesthetic agent; Z88.8 Allergy status to other drugs, medicaments and biological substances; Z90.710 Acquired absence of both cervix and uterus
CPT/HCPCS: 96360; 99211; J7030

== ENCOUNTER 2025-02-11 15:58 | Day surgery (SDC) | payer BC ==
[2025-02-11] MEDS ORDERED: NS 1,000 ML IV SCH (16:00)
[2025-02-11 16:01] VITALS: BP 120/75
[2025-02-11] MEDS ORDERED: NS 1,000 ML IV ONE (16:03)
[2025-02-15] MEDS ORDERED: MERIBIN5 MG PO (10:24)
[2025-02-15] MEDS ORDERED: Vitamin D1000 UNI1 PO (10:26)
[2025-02-15] MEDS ORDERED: KETO15TC (10:27)
[2025-02-15] MEDS ORDERED: CLIN1TS (10:27)
[2025-02-15] MEDS ORDERED: LORA10ER PO (10:28)
[2025-02-15] MEDS ORDERED: MAGNESIUM PO (10:28)
[2025-02-15] MEDS ORDERED: POTASSIUM CITRATE PO (10:30)
== END 2025-02-11 17:10 | disposition home or self-care (01) ==
LOC: ATC 15:58
DX: G90.A Postural orthostatic tachycardia syndrome [POTS] (principal); K21.9 Gastro-esophageal reflux disease without esophagitis; F17.210 Nicotine dependence, cigarettes, uncomplicated; Z88.5 Allergy status to narcotic agent; Z88.8 Allergy status to other drugs, medicaments and biological substances; Z91.0110 Allergy to milk products, unspecified; Z91.018 Allergy to other foods; Z79.899 Other long term (current) drug therapy
CPT/HCPCS: 96360; J7030